=== PATIENT | female | born 1980 | race Caucasian/White ===

== ENCOUNTER 2018-10-01 12:13 | Emergency (ER) | payer BC, OTHER ==
[2018-10-01 12:41] VITALS: RESP 18; TEMP 98.3; O2SAT 100
[2018-10-01] MEDS ORDERED: Lidocaine 5% Patch TD STA (12:56)
--- NOTE | 2018-10-01 13:04 | C.PDOC ---
History Of Present Illness 37 y/o female presents to ED complaining of mid-back pain since one week ago. States she bent over to pick something up when she suddenly felt something pop. Patient was seen at another hospital, where she was given flexeril and was referred to neurology. Patient got better but then pain worsened in the last few days. She denies any numbness, tingling, weakness, saddle anesthesia, bladder/bowel dysfunctions, or fever. Patient is only currently taking flexeril for the pain. Time Seen by Provider: 10/01/18 12:30 Chief Complaint (Nursing): Back Pain History Per: Patient History/Exam Limitations: no limitations Onset/Duration Of Symptoms: Days Current Symptoms Are (Timing): Still Present Past Medical History Reviewed: Historical Data, Nursing Documentation, Vital Signs Vital Signs: Last Vital Signs Temp 98.3 F 10/01/18 12:25 Pulse 99 H 10/01/18 12:25 Resp 18 10/01/18 12:25 BP 131/81 10/01/18 12:25 Pulse Ox 100 10/01/18 12:25 Surgical History: Family History: States: No Known Family Hx - Social History Hx Tobacco Use: No Hx Alcohol Use: Yes Hx Substance Use: No - Immunization History Hx Tetanus Toxoid Vaccination: No Hx Influenza Vaccination: No Hx Pneumococcal Vaccination: No Review Of Systems Constitutional: Negative for: Fever Respiratory: Negative for: Shortness of Breath Gastrointestinal: Negative for: Nausea, Vomiting, Abdominal Pain, Diarrhea Genitourinary: Negative for: Dysuria, Incontinence Musculoskeletal: Positive for: Back Pain Neurological: Negative for: Weakness, Numbness, Other (saddle anesthesia) Physical Exam - Physical Exam Appears: Non-toxic, No Acute Distress Skin: Warm, Dry, No Rash Head: Atraumatic, Normacephalic Eye(s): bilateral: Normal Inspection Oral Mucosa: Moist Neck: No Midline Cervical Tenderness, Supple Chest: Symmetrical Cardiovascular: Rhythm Regular, No Murmur Respiratory: No Rales, No Rhonchi, No Wheezing Back: Other (Midline thoracic tenderness and right parathoracic spasms) Extremity: Bilateral: Normal Color And Temperature, Normal ROM Neurological/Psych: Oriented x3, Normal Speech, Normal Motor, Normal Sensation Gait: Steady ED Course And Treatment O2 Sat by Pulse Oximetry: 100 (RA) Pulse Ox Interpretation: Normal - Other Rad T-Spine X-Ray X-Ray: Read By Radiologist Interpretation: FINDINGS: BONES: The vertebral bodies are maintained in height. There is minimal dextroscoliotic curvature of the lower thoracic spine. DISC SPACES: Normal. SOFT TISSUES: Normal. OTHER FINDINGS: None. IMPRESSION: Minimal dextroscoliosis. Otherwise unremarkable. Medical Decision Making Medical Decision Making: Plan: --Thoracic Spine X-Ray --Lidoderm --Toradol --POC 1444 pt with mild relief, curvature on xray, no fx., d/c home with mtrin. tylenol and muscle relaxant/. Disposition Counseled Patient/Family Regarding: Studies Performed, Diagnosis, Need For Followup, Rx Given - Disposition Referrals: Rina Das MD [Staff Provider] - Disposition: HOME/ ROUTINE Disposition Time: 14:46 Condition: GOOD Additional Instructions: Please take medicaitons as prescrbied. Follow up with [facility] and Dr Das this week. Take mpatch off back in 12 hours. Warm compresses topainful area. 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 - Scribe Statement The provider has reviewed the documentation as recorded by the Scribmyles Potts All medical record entries made by the Andreaibmyles were at my direction and personally dictated by me. I have reviewed the chart and agree that the record accurately reflects my personal performance of the history, physical exam, medical decision making, and the department course for this patient. I have also personally directed, reviewed, and agree with the discharge instructions and disposition.
[2018-10-01] MEDS ORDERED: Lidocaine 5% Patch TD ONE (13:17)
[2018-10-01 15:13] VITALS: BP 115/60; PULSE 76
--- NOTE | 2018-10-01 15:25 | RAD ---
Date of service: 10/01/2018 HISTORY: midline thoracic tenderness COMPARISON: No prior. FINDINGS: BONES: The vertebral bodies are maintained in height. There is minimal dextroscoliotic curvature of the lower thoracic spine. DISC SPACES: Normal. SOFT TISSUES: Normal. OTHER FINDINGS: None. IMPRESSION: Minimal dextroscoliosis. Otherwise unremarkable.
== END 2018-10-01 15:12 | disposition home or self-care (01) ==
LOC: C.ER 12:13
DX: M54.6 Pain in thoracic spine (principal); M62.830 Muscle spasm of back
CPT/HCPCS: 72070; 96372; 99283; J1885